=== PATIENT | male | born 1980 | race Caucasian/White ===

== ENCOUNTER 2020-06-23 12:22 | Inpatient (IN) | payer OTHER ==
[2020-06-23] MEDS ORDERED: chlordiazePOXIDE HCL 25 MG CAPSULE ONE (14:12)
[2020-06-23 14:17] VITALS: BMI 36.1
[2020-06-23] MEDS ORDERED: cloNIDine HCL 0.1 MG TABLET ONE (14:17)
[2020-06-23] MEDS ORDERED: BISMUTH SUBSALICYLATE 262 MG/15 ML BTL PO PRN (14:18)
[2020-06-23] MEDS ORDERED: ACETAMINOPHEN 325 MG TABLET (FP) PO PRN ×2 (14:18)
[2020-06-23] MEDS ORDERED: ONDANSETRON *ODT* 4 MG TABLET SL PRN (14:18)
[2020-06-23] MEDS ORDERED: MAGNESIUM CITRATE 300 ML BOTTLE PO PRN (14:18)
[2020-06-23] MEDS ORDERED: MENTHOL/PHENOL 1 EACH UD MM PRN (14:18)
[2020-06-23] MEDS ORDERED: MAGNESIUM HYDROX 2400MG/30ML ORAL SUSPENSION 30 ML CUP PO PRN (14:18)
[2020-06-23] MEDS ORDERED: NICOTINE POLACRILEX 2 MG GUM BUC PRN (14:18)
[2020-06-23] MEDS ORDERED: cloNIDine HCL 0.1 MG TABLET PO PRN (14:19)
[2020-06-23] MEDS: chlordiazePOXIDE HCL 25 MG CAPSULE PO PRN (14:26)
[2020-06-23] MEDS: PRENATAL VITAMINS W/ FOLIC ACID TABLET (FP) PO SCH (17:55)
[2020-06-23] MEDS: chlordiazePOXIDE HCL 25 MG CAPSULE PO SCH ×2 (17:55→22:18)
[2020-06-23] MEDS: hydrOXYzine PAMOATE 25 MG CAPSULE (FP) PO SCH ×2 (17:56→21:56)
[2020-06-23] MEDS: MAG HYDROX/AL HYDROX/SIMETH 30 ML UNIT-DOSE CUP PO PRN (18:06)
[2020-06-23 18:08] LABS: HIV INTERPRETATION NEGATIVE (NEGATIVE)
[2020-06-23] MEDS: MELATONIN 5 MG TABLETS PO SCH (21:56)
[2020-06-23] MEDS: THIAMINE HCL 100 MG TABLET (FP) PO SCH (21:56)
[2020-06-24] MEDS: chlordiazePOXIDE HCL 25 MG CAPSULE PO PRN (03:49)
[2020-06-24] MEDS: hydrOXYzine PAMOATE 25 MG CAPSULE (FP) PO SCH ×5 (05:28→22:07)
[2020-06-24] MEDS: chlordiazePOXIDE HCL 25 MG CAPSULE PO SCH (05:28)
[2020-06-24] MEDS ORDERED: NICOTINE 21 MG/24 HOURS TOPICAL PATCH TD SCH (10:00)
[2020-06-24] MEDS: PRENATAL VITAMINS W/ FOLIC ACID TABLET (FP) PO SCH (10:14)
[2020-06-24] MEDS: LORazepam 2 MG TABLET PO SCH ×3 (10:14→22:06)
[2020-06-24] MEDS: METHOCARBAMOL 500 MG TABLET PO PRN ×2 (10:16→17:43)
[2020-06-24] MEDS: IBUPROFEN 400 MG TABLET (FP) PO PRN ×2 (10:16→22:08)
[2020-06-24 10:33] LABS: HEMOGLOBIN 14.1 GM/dL (11.7-16.9); MCH 31.8 pg (25.7-33.7); MCHC 35.3 g/dl (32.0-35.9); MEAN CELL VOLUME 90.3 fl (80-96); MEAN PLT VOLUME 8.4 fl (7.5-11.1); PLATELET COUNT 336 K/MM3 (134-434); RBC 4.43 M/mm3 (4.00-5.60); RDW 13.5 % (11.9-15.9); WHITE BLOOD COUNT 6.5 K/mm3 (4.0-10.0)
[2020-06-24 11:07] LABS: POTASSIUM 3.9 mmol/L (3.5-5.1)
[2020-06-24 11:17] LABS: CALCIUM 9.2 mg/dL (8.5-10.1)
[2020-06-24 11:18] LABS: ALBUMIN 4.1 g/dl (3.4-5.0); BLOOD UREA NITROGEN 8.5 mg/dL (7-18)
[2020-06-24 11:21] LABS: CREATININE 0.9 mg/dL (0.55-1.3)
[2020-06-24 11:22] LABS: BILIRUBIN,TOTAL 0.5 mg/dL (0.2-1); TOT PROT 7.7 g/dl (6.4-8.2)
[2020-06-24] MEDS: LORazepam 1 MG TABLET PO PRN (14:20)
[2020-06-24] MEDS: busPIRone HCL 10 MG TABLET (FP) PO SCH ×2 (14:21→22:06)
[2020-06-24] MEDS: MAG HYDROX/AL HYDROX/SIMETH 30 ML UNIT-DOSE CUP PO PRN (15:51)
[2020-06-24] MEDS ORDERED: AMITRIPTYLINE HCL 25 MG TABLET PO SCH (22:00)
[2020-06-24] MEDS: THIAMINE HCL 100 MG TABLET (FP) PO SCH (22:06)
[2020-06-24] MEDS: MELATONIN 5 MG TABLETS PO SCH (22:07)
[2020-06-25] MEDS: LORazepam 1 MG TABLET PO PRN ×2 (01:26→07:59)
[2020-06-25] MEDS ORDERED: chlordiazePOXIDE HCL 25 MG CAPSULE PO SCH (05:00)
[2020-06-25] MEDS: busPIRone HCL 10 MG TABLET (FP) PO SCH (05:32)
[2020-06-25] MEDS: hydrOXYzine PAMOATE 25 MG CAPSULE (FP) PO SCH (05:32)
[2020-06-25] MEDS: LORazepam 2 MG TABLET PO SCH (05:32)
[2020-06-25] MEDS: IBUPROFEN 400 MG TABLET (FP) PO PRN (05:33)
[2020-06-25 07:26] VITALS: BP 132/84; PULSE 113; TEMP 97.5
[2020-06-25] MEDS ORDERED: PNEUMOCOCCAL 23 VACCINE 0.5 ML VIAL IM ONE (12:00)
[2020-06-25] MEDS ORDERED: PNEUMOC 13-VAL CONJ-DIP CRM/PF 0.5 ML DISP.SYRIN IM ONE (12:00)
[2020-06-25] MEDS ORDERED: FLU VACCINE (FLULAVAL) PF 60 MCG/0.5 ML SYRINGE 2020-2021 IM ONE (12:00)
[2020-06-26] MEDS ORDERED: chlordiazePOXIDE HCL 10 MG CAPSULE PO PRN
[2020-06-26] MEDS ORDERED: LORazepam 1 MG TABLET PO SCH (05:00)
[2020-06-26] MEDS ORDERED: chlordiazePOXIDE HCL 10 MG CAPSULE PO SCH (05:00)
[2020-06-27] MEDS ORDERED: LORazepam 0.5 MG TABLET PO PRN
[2020-06-27] MEDS ORDERED: chlordiazePOXIDE HCL 10 MG CAPSULE PO SCH (05:00)
[2020-06-27] MEDS ORDERED: LORazepam 0.5 MG TABLET PO SCH (05:00)
[2020-06-28] MEDS ORDERED: chlordiazePOXIDE HCL 10 MG CAPSULE PO ONE (05:00)
[2020-06-28] MEDS ORDERED: LORazepam 0.5 MG TABLET PO ONE (05:00)
== END 2020-06-25 09:14 | disposition left against medical advice (07) | DRG 770 ==
LOC: YASAS 12:22 → Y6N 14:52
PROVIDERS: ADMIT Allergy & Immunology; ATTEND Allergy & Immunology
PROC: HZ2ZZZZ Detoxification Services for Substance Abuse Treatment (ICD-10-PCS; principal; 2020-06-23)
DX: F10.230 Alcohol dependence with withdrawal, uncomplicated (principal); F11.20 Opioid dependence, uncomplicated; F17.210 Nicotine dependence, cigarettes, uncomplicated; F19.282 Other psychoactive substance dependence with psychoactive substance-induced sleep disorder; F19.24 Other psychoactive substance dependence with psychoactive substance-induced mood disorder; F32.9 Major depressive disorder, single episode, unspecified; F43.10 Post-traumatic stress disorder, unspecified; M54.5 Low back pain; G89.29 Other chronic pain; Z91.5 Personal history of self-harm; Z98.890 Other specified postprocedural states; Z56.0 Unemployment, unspecified; Z59.0 Homelessness
CPT/HCPCS: 36415; 80053; 85027; 86780; 87389; 93005; 93010; C9803; J0735; Q0162; U0003

== ENCOUNTER 2021-05-18 09:42 | Emergency (ER) | payer OTHER ==
[2021-05-18] MEDS ORDERED: HALOPERIDOL LACTATE 5 MG/ML ONE (10:11)
[2021-05-18] MEDS ORDERED: HALOPERIDOL LACTATE 5 MG/ML IM ONE (10:12)
[2021-05-18 10:21] VITALS: BP 124/78; PULSE 105; TEMP 98; BMI 36.1
[2021-05-18] MEDS ORDERED: MIDAZOLAM HCL 2 MG/2 ML SINGLE DOSE VIAL IVPUSH ONE (10:31)
[2021-05-18] MEDS ORDERED: MIDAZOLAM HCL 2 MG/2 ML SINGLE DOSE VIAL ONE (10:31)
[2021-05-18 11:04] LABS: BASO % 0.9 % (0-2.0); EOS % 0.5 % (0-4.5); HEMOGLOBIN 14.9 GM/dL (11.7-16.9); LYMPH % 25.7 % (8-40); MCH 31.6 pg (25.7-33.7); MCHC 34.6 g/dl (32.0-35.9); MEAN CELL VOLUME 91.5 fl (80-96); NEUT % 63.9 % (42.8-82.8); PLATELET COUNT 314 10^3/uL (134-434); RDW 12.5 % (11.9-15.9); WHITE BLOOD COUNT 8.5 K/mm3 (4.0-10.0)
[2021-05-18 12:01] LABS: ALBUMIN 4.1 g/dl (3.4-5.0); BILIRUBIN,TOTAL 0.5 mg/dl (0.2-1); CALCIUM 9.1 mg/dl (8.5-10); CREATININE 0.8 mg/dl (0.55-1.3); TOT PROT 7.3 g/dl (6.4-8.2)
[2021-05-18 12:14] LABS: COCAINE, UR NEGATIVE (NEGATIVE); METHADONE, UR NEGATIVE (NEGATIVE); OPIATES, URI NEGATIVE (NEGATIVE); PHENCYCLIDINE,URINE NEGATIVE (NEGATIVE); URINE BARBITURATES NEGATIVE (NEGATIVE)
[2021-05-18 12:15] LABS: URINE AMPHETAMINES NEGATIVE (NEGATIVE); URINE BENZODIAZEPINES POSITIVE (NEGATIVE)
[2021-05-18] MEDS ORDERED: LORazepam 2 MG TABLET PO ONE (14:12)
[2021-05-18] MEDS ORDERED: LORazepam 0.5 MG TABLET ONE (14:13)
[2021-05-18] MEDS ORDERED: chlordiazePOXIDE HCL 25 MG CAPSULE PO ONE (16:14)
[2021-05-18] MEDS ORDERED: chlordiazePOXIDE HCL 25 MG CAPSULE ONE (16:26)
== END 2021-05-18 17:16 | disposition home or self-care (01) ==
LOC: FER 09:42
PROC: 3E023NZ Introduction of Analgesics, Hypnotics, Sedatives into Muscle, Percutaneous Approach (ICD-10-PCS; principal; 2021-05-18)
PROC: 3E033NZ Introduction of Analgesics, Hypnotics, Sedatives into Peripheral Vein, Percutaneous Approach (ICD-10-PCS; 2021-05-18)
DX: F10.239 Alcohol dependence with withdrawal, unspecified (principal); F19.24 Other psychoactive substance dependence with psychoactive substance-induced mood disorder
CPT/HCPCS: 36415; 80053; 80307; 85025; 93005; 96372; 96374; 99284-25; C9803; U0003; U0005

== ENCOUNTER 2021-08-14 15:50 | Inpatient (IN) | payer OTHER ==
[2021-08-14 16:47] VITALS: BMI 39.1
[2021-08-14] MEDS ORDERED: MELATONIN 5 MG TABLETS PO PRN (17:05)
[2021-08-14] MEDS ORDERED: ACETAMINOPHEN 325 MG TABLET (FP) PO PRN ×2 (17:05)
[2021-08-14] MEDS ORDERED: BENZOCAINE/MENTHOL (CHLORASEPTIC ) LOZENGE MM PRN (17:05)
[2021-08-14] MEDS ORDERED: IBUPROFEN 400 MG TABLET (FP) PO PRN (17:05)
[2021-08-14] MEDS ORDERED: MAGNESIUM CITRATE 300 ML BOTTLE PO PRN (17:05)
[2021-08-14] MEDS ORDERED: P-EPHED 60MG/TRIPROLIDI 2.5MG TABLET PO PRN (17:05)
[2021-08-14] MEDS ORDERED: LOPERAMIDE HCL 2 MG CAPSULE PO PRN (17:05)
[2021-08-14] MEDS ORDERED: DICYCLOMINE HCL 10 MG CAPSULE PO PRN (17:05)
[2021-08-14] MEDS ORDERED: MAGNESIUM HYDROX 2400MG/30ML ORAL SUSPENSION 30 ML CUP PO PRN (17:05)
[2021-08-14] MEDS ORDERED: BISMUTH SUBSALICYLATE 524 MG/30 ML PO PRN (17:05)
[2021-08-14] MEDS ORDERED: METHOCARBAMOL 500 MG TABLET PO PRN (17:05)
[2021-08-14] MEDS ORDERED: MAG HYDROX/AL HYDROX/SIMETH 30 ML UNIT-DOSE CUP PO PRN (17:05)
[2021-08-14] MEDS ORDERED: cloNIDine HCL 0.1 MG TABLET PO PRN (17:08)
[2021-08-14] MEDS ORDERED: chlordiazePOXIDE HCL 25 MG CAPSULE PO PRN (17:08)
[2021-08-14] MEDS ORDERED: methaDONE HCL 10 MG TABLET (FOR DETOX USE ONLY) PO ONE (17:08)
[2021-08-14] MEDS ORDERED: METOPROLOL TARTRATE 25 MG TABLET (FP) PO ONE (17:09)
[2021-08-14] MEDS ORDERED: chlordiazePOXIDE HCL 25 MG CAPSULE ONE (18:09)
[2021-08-14] MEDS ORDERED: methaDONE HCL 10 MG TABLET (FOR DETOX USE ONLY) ONE (18:10)
[2021-08-14] MEDS: chlordiazePOXIDE HCL 25 MG CAPSULE PO SCH ×2 (18:11→22:09)
[2021-08-14] MEDS: THIAMINE HCL 100 MG TABLET (FP) PO SCH (22:09)
[2021-08-14] MEDS: hydrOXYzine PAMOATE 25 MG CAPSULE (FP) PO PRN (22:09)
[2021-08-15] MEDS: ONDANSETRON *ODT* 4 MG TABLET SL PRN ×2 (02:37→04:36)
[2021-08-15] MEDS ORDERED: TRIMETHOBENZAMIDE HCL 200MG/2ML INJ IM ONE (05:00)
[2021-08-15] MEDS: chlordiazePOXIDE HCL 25 MG CAPSULE PO SCH ×2 (05:37→12:02)
[2021-08-15] MEDS: hydrOXYzine PAMOATE 25 MG CAPSULE (FP) PO PRN ×2 (05:38→22:06)
[2021-08-15] MEDS ORDERED: methaDONE HCL 10 MG TABLET (FOR DETOX USE ONLY) PO ONE (10:00)
[2021-08-15] MEDS ORDERED: methaDONE HCL 10 MG TABLET (FOR DETOX USE ONLY) ONE (10:06)
[2021-08-15] MEDS: PRENATAL VITAMINS W/ FOLIC ACID TABLET (FP) PO SCH (10:08)
[2021-08-15] MEDS: QUEtiapine FUMARATE 100 MG TABLET (FP) PO SCH ×2 (10:09→22:06)
[2021-08-15] MEDS ORDERED: LORazepam 1 MG TABLET PO PRN (12:19)
[2021-08-15] MEDS ORDERED: TRIMETHOBENZAMIDE HCL 200MG/2ML INJ IM PRN (12:21)
[2021-08-15] MEDS: LORazepam 2 MG TABLET PO SCH ×3 (12:41→22:05)
[2021-08-15] MEDS: CLOTRIMAZOLE 1% CREAM TP SCH ×2 (12:43→22:07)
[2021-08-15] MEDS: THIAMINE HCL 100 MG TABLET (FP) PO SCH (22:05)
[2021-08-15] MEDS: AMITRIPTYLINE HCL 75 MG TABLET PO SCH (22:06)
[2021-08-16 00:06] LABS: SARS-CoV-2 NAA Not Detected (Not Detected)
[2021-08-16] MEDS ORDERED: chlordiazePOXIDE HCL 25 MG CAPSULE PO SCH (05:00)
[2021-08-16] MEDS: LORazepam 2 MG TABLET PO SCH ×4 (05:05→22:15)
[2021-08-16] MEDS: ONDANSETRON *ODT* 4 MG TABLET SL PRN (05:07)
[2021-08-16] MEDS ORDERED: methaDONE HCL 10 MG TABLET (FOR DETOX USE ONLY) PO ONE (10:00)
[2021-08-16] MEDS: PRENATAL VITAMINS W/ FOLIC ACID TABLET (FP) PO SCH (10:09)
[2021-08-16] MEDS: CLOTRIMAZOLE 1% CREAM TP SCH ×2 (10:09→22:15)
[2021-08-16] MEDS: QUEtiapine FUMARATE 100 MG TABLET (FP) PO SCH ×2 (10:09→22:15)
[2021-08-16] MEDS: NICOTINE 10 MG CARTRIDGE (INHALER) IH PRN ×3 (10:13→22:16)
[2021-08-16 12:32] LABS: HEMATOCRIT 37.3 % (35.4-49); HEMOGLOBIN 13.1 GM/dL (11.7-16.9); MCH 32.5 pg (25.7-33.7); MCHC 35.1 g/dl (32.0-35.9); MEAN CELL VOLUME 92.7 fl (80-96); MEAN PLT VOLUME 6.9 fl (7.5-11.1); PLATELET COUNT 230 10^3/uL (134-434); RBC 4.02 M/mm3 (4.00-5.60); RDW 13.6 % (11.9-15.9); WHITE BLOOD COUNT 5.7 K/mm3 (4.0-10.0)
[2021-08-16 13:03] LABS: CALCIUM 8.5 mg/dL (8.5-10.1)
[2021-08-16 13:07] LABS: ALBUMIN 3.4 g/dl (3.4-5.0); BLOOD UREA NITROGEN 17.5 mg/dL (7-18); CREATININE 0.8 mg/dL (0.55-1.3)
[2021-08-16 13:08] LABS: BILIRUBIN,TOTAL 0.5 mg/dL (0.2-1); TOT PROT 6.3 g/dl (6.4-8.2)
[2021-08-16] MEDS: hydrOXYzine PAMOATE 25 MG CAPSULE (FP) PO PRN (17:45)
[2021-08-16] MEDS: AMITRIPTYLINE HCL 75 MG TABLET PO SCH (22:15)
[2021-08-16] MEDS: THIAMINE HCL 100 MG TABLET (FP) PO SCH (22:16)
[2021-08-17] MEDS ORDERED: chlordiazePOXIDE HCL 10 MG CAPSULE PO PRN
[2021-08-17] MEDS ORDERED: chlordiazePOXIDE HCL 10 MG CAPSULE PO SCH (05:00)
[2021-08-17] MEDS: LORazepam 1 MG TABLET PO SCH ×4 (05:07→22:13)
[2021-08-17 08:34] LABS: SARS-CoV-2 NAA Not Detected
[2021-08-17] MEDS ORDERED: methaDONE HCL 10 MG TABLET (FOR DETOX USE ONLY) PO ONE (10:00)
[2021-08-17] MEDS: CLOTRIMAZOLE 1% CREAM TP SCH ×2 (10:17→22:13)
[2021-08-17] MEDS: QUEtiapine FUMARATE 100 MG TABLET (FP) PO SCH ×2 (10:17→22:13)
[2021-08-17] MEDS: PRENATAL VITAMINS W/ FOLIC ACID TABLET (FP) PO SCH (10:17)
[2021-08-17] MEDS: NICOTINE 10 MG CARTRIDGE (INHALER) IH PRN (14:55)
[2021-08-17] MEDS: THIAMINE HCL 100 MG TABLET (FP) PO SCH (22:12)
[2021-08-17] MEDS: AMITRIPTYLINE HCL 75 MG TABLET PO SCH (22:13)
[2021-08-18] MEDS ORDERED: LORazepam 0.5 MG TABLET PO PRN
[2021-08-18] MEDS ORDERED: chlordiazePOXIDE HCL 10 MG CAPSULE PO SCH (05:00)
[2021-08-18] MEDS: LORazepam 0.5 MG TABLET PO SCH ×4 (05:31→22:11)
[2021-08-18] MEDS: PRENATAL VITAMINS W/ FOLIC ACID TABLET (FP) PO SCH (10:03)
[2021-08-18] MEDS: QUEtiapine FUMARATE 100 MG TABLET (FP) PO SCH ×2 (10:03→22:12)
[2021-08-18] MEDS: CLOTRIMAZOLE 1% CREAM TP SCH ×2 (10:04→22:34)
[2021-08-18] MEDS: hydrOXYzine PAMOATE 25 MG CAPSULE (FP) PO PRN (13:11)
[2021-08-18] MEDS: THIAMINE HCL 100 MG TABLET (FP) PO SCH (22:11)
[2021-08-18] MEDS: AMITRIPTYLINE HCL 75 MG TABLET PO SCH (22:12)
[2021-08-19] MEDS ORDERED: LORazepam 0.5 MG TABLET PO ONE (05:00)
[2021-08-19] MEDS ORDERED: chlordiazePOXIDE HCL 10 MG CAPSULE PO ONE (05:00)
[2021-08-19 09:14] VITALS: BP 122/80; PULSE 114; TEMP 98.1
[2021-08-19] MEDS: QUEtiapine FUMARATE 100 MG TABLET (FP) PO SCH (10:09)
[2021-08-19] MEDS: PRENATAL VITAMINS W/ FOLIC ACID TABLET (FP) PO SCH (10:09)
[2021-08-19] MEDS: CLOTRIMAZOLE 1% CREAM TP SCH (10:10)
[2021-08-19] MEDS: NICOTINE 10 MG CARTRIDGE (INHALER) IH PRN (10:10)
== END 2021-08-19 11:12 | disposition other institution (70) | DRG 773 ==
LOC: YASAS 15:50 → Y6N 17:05
PROVIDERS: ADMIT Allergy & Immunology; ATTEND Allergy & Immunology
PROC: HZ2ZZZZ Detoxification Services for Substance Abuse Treatment (ICD-10-PCS; principal; 2021-08-14)
DX: F11.23 Opioid dependence with withdrawal (principal); F10.230 Alcohol dependence with withdrawal, uncomplicated; F14.10 Cocaine abuse, uncomplicated; F17.210 Nicotine dependence, cigarettes, uncomplicated; F19.280 Other psychoactive substance dependence with psychoactive substance-induced anxiety disorder; F19.282 Other psychoactive substance dependence with psychoactive substance-induced sleep disorder; F19.24 Other psychoactive substance dependence with psychoactive substance-induced mood disorder; F41.9 Anxiety disorder, unspecified; F32.A Depression, unspecified; F43.10 Post-traumatic stress disorder, unspecified; I10 Essential (primary) hypertension; H91.92 Unspecified hearing loss, left ear; M54.50 Low back pain, unspecified; G89.29 Other chronic pain
CPT/HCPCS: 36415; 80053; 84443; 85027; 86780; C9803-CS; Q0162; U0003; U0005

== ENCOUNTER 2021-08-19 11:22 | Inpatient (IN) | payer OTHER ==
[2021-08-19] MEDS ORDERED: BENZOCAINE/MENTHOL (CHLORASEPTIC ) LOZENGE MM PRN (14:06)
[2021-08-19] MEDS ORDERED: MAGNESIUM HYDROX 2400MG/30ML ORAL SUSPENSION 30 ML CUP PO PRN (14:06)
[2021-08-19] MEDS ORDERED: IBUPROFEN 400 MG TABLET (FP) PO PRN (14:06)
[2021-08-19] MEDS ORDERED: MAG HYDROX/AL HYDROX/SIMETH 30 ML UNIT-DOSE CUP PO PRN (14:06)
[2021-08-19] MEDS ORDERED: guaiFENesin 200 MG/10 ML 10 ML UNIT-DOSE CUPS PO PRN (14:06)
[2021-08-19] MEDS ORDERED: ACETAMINOPHEN 325 MG TABLET (FP) PO PRN (14:06)
[2021-08-19] MEDS ORDERED: MAGNESIUM CITRATE 300 ML BOTTLE PO PRN (14:06)
[2021-08-19] MEDS ORDERED: LOPERAMIDE HCL 2 MG CAPSULE PO PRN (14:06)
[2021-08-19] MEDS ORDERED: P-EPHED 60MG/TRIPROLIDI 2.5MG TABLET PO PRN (14:06)
[2021-08-19] MEDS ORDERED: hydrOXYzine PAMOATE 25 MG CAPSULE (FP) PO SCH (18:00)
[2021-08-19] MEDS: NICOTINE 10 MG CARTRIDGE (INHALER) IH PRN (19:54)
[2021-08-19] MEDS: THIAMINE HCL 100 MG TABLET (FP) PO SCH (21:11)
[2021-08-19] MEDS: MELATONIN 5 MG TABLETS PO SCH (21:11)
[2021-08-19] MEDS: CLOTRIMAZOLE 1% CREAM TP SCH (21:12)
[2021-08-19] MEDS: AMITRIPTYLINE HCL 25 MG TABLET PO SCH (21:12)
[2021-08-19] MEDS: QUEtiapine FUMARATE 100 MG TABLET (FP) PO SCH (21:13)
[2021-08-20] MEDS: hydrOXYzine PAMOATE 25 MG CAPSULE (FP) PO PRN (06:15)
[2021-08-20] MEDS: CLOTRIMAZOLE 1% CREAM TP SCH ×2 (09:48→21:15)
[2021-08-20] MEDS: NICOTINE 7 MG/24 HOURS TOPICAL PATCH TD SCH (09:48)
[2021-08-20] MEDS: NICOTINE 10 MG CARTRIDGE (INHALER) IH PRN ×2 (09:49→15:29)
[2021-08-20] MEDS: QUEtiapine FUMARATE 100 MG TABLET (FP) PO SCH ×2 (09:49→21:15)
[2021-08-20] MEDS: PRENATAL VITAMINS W/ FOLIC ACID TABLET (FP) PO SCH (09:49)
[2021-08-20] MEDS: THIAMINE HCL 100 MG TABLET (FP) PO SCH (21:12)
[2021-08-20] MEDS: AMITRIPTYLINE HCL 25 MG TABLET PO SCH (21:12)
[2021-08-20] MEDS: MELATONIN 5 MG TABLETS PO SCH (21:12)
[2021-08-21] MEDS: CLOTRIMAZOLE 1% CREAM TP SCH ×2 (09:50→21:50)
[2021-08-21] MEDS: NICOTINE 7 MG/24 HOURS TOPICAL PATCH TD SCH (09:51)
[2021-08-21] MEDS: hydrOXYzine PAMOATE 25 MG CAPSULE (FP) PO PRN (09:51)
[2021-08-21] MEDS: QUEtiapine FUMARATE 100 MG TABLET (FP) PO SCH ×2 (09:51→21:48)
[2021-08-21] MEDS: PRENATAL VITAMINS W/ FOLIC ACID TABLET (FP) PO SCH (09:51)
[2021-08-21] MEDS: NICOTINE 10 MG CARTRIDGE (INHALER) IH PRN ×2 (09:52→15:30)
[2021-08-21] MEDS: MELATONIN 5 MG TABLETS PO SCH (21:46)
[2021-08-21] MEDS: THIAMINE HCL 100 MG TABLET (FP) PO SCH (21:47)
[2021-08-21] MEDS: AMITRIPTYLINE HCL 25 MG TABLET PO SCH (21:49)
[2021-08-22] MEDS: hydrOXYzine PAMOATE 25 MG CAPSULE (FP) PO PRN (06:25)
[2021-08-22] MEDS: NICOTINE 7 MG/24 HOURS TOPICAL PATCH TD SCH (09:44)
[2021-08-22] MEDS: NICOTINE 10 MG CARTRIDGE (INHALER) IH PRN (09:44)
[2021-08-22] MEDS: PRENATAL VITAMINS W/ FOLIC ACID TABLET (FP) PO SCH (09:45)
[2021-08-22] MEDS: CLOTRIMAZOLE 1% CREAM TP SCH ×2 (09:46→21:29)
[2021-08-22] MEDS: QUEtiapine FUMARATE 100 MG TABLET (FP) PO SCH ×2 (09:46→21:28)
[2021-08-22] MEDS: THIAMINE HCL 100 MG TABLET (FP) PO SCH (21:28)
[2021-08-22] MEDS: MELATONIN 5 MG TABLETS PO SCH (21:28)
[2021-08-22] MEDS: AMITRIPTYLINE HCL 25 MG TABLET PO SCH (21:29)
[2021-08-23] MEDS: NICOTINE 10 MG CARTRIDGE (INHALER) IH PRN ×3 (08:40→21:32)
[2021-08-23] MEDS: NICOTINE 7 MG/24 HOURS TOPICAL PATCH TD SCH (09:55)
[2021-08-23] MEDS: QUEtiapine FUMARATE 100 MG TABLET (FP) PO SCH ×2 (09:56→21:33)
[2021-08-23] MEDS: PRENATAL VITAMINS W/ FOLIC ACID TABLET (FP) PO SCH (09:56)
[2021-08-23] MEDS: CLOTRIMAZOLE 1% CREAM TP SCH ×2 (09:57→21:34)
[2021-08-23] MEDS: MELATONIN 5 MG TABLETS PO SCH (21:32)
[2021-08-23] MEDS: THIAMINE HCL 100 MG TABLET (FP) PO SCH (21:32)
[2021-08-23] MEDS: AMITRIPTYLINE HCL 25 MG TABLET PO SCH (21:33)
[2021-08-23] MEDS ORDERED: INSULIN (NOVOLOG) ASPART 100 UNITS/ML 10ML VIAL ONE (21:43)
[2021-08-23] MEDS ORDERED: INSULIN (LEVEMIR) 100 UNITS/ML UNITS SQ ONE (21:43)
[2021-08-24 00:09] LABS: SARS-CoV-2 NAA Not Detected (Not Detected)
[2021-08-24] MEDS: hydrOXYzine PAMOATE 25 MG CAPSULE (FP) PO PRN (06:35)
[2021-08-24] MEDS: NICOTINE 10 MG CARTRIDGE (INHALER) IH PRN (07:52)
[2021-08-24] MEDS: PRENATAL VITAMINS W/ FOLIC ACID TABLET (FP) PO SCH (09:59)
[2021-08-24] MEDS: CLOTRIMAZOLE 1% CREAM TP SCH ×2 (09:59→21:29)
[2021-08-24] MEDS: QUEtiapine FUMARATE 100 MG TABLET (FP) PO SCH ×2 (10:00→21:29)
[2021-08-24] MEDS: NICOTINE 7 MG/24 HOURS TOPICAL PATCH TD SCH (10:01)
[2021-08-24] MEDS: THIAMINE HCL 100 MG TABLET (FP) PO SCH (21:28)
[2021-08-24] MEDS: MELATONIN 5 MG TABLETS PO SCH (21:28)
[2021-08-24] MEDS: AMITRIPTYLINE HCL 25 MG TABLET PO SCH (21:29)
[2021-08-25] MEDS: NICOTINE 7 MG/24 HOURS TOPICAL PATCH TD SCH (09:49)
[2021-08-25] MEDS: PRENATAL VITAMINS W/ FOLIC ACID TABLET (FP) PO SCH (09:49)
[2021-08-25] MEDS: QUEtiapine FUMARATE 100 MG TABLET (FP) PO SCH ×2 (09:49→21:16)
[2021-08-25] MEDS: CLOTRIMAZOLE 1% CREAM TP SCH ×2 (09:50→21:17)
[2021-08-25] MEDS: NICOTINE 10 MG CARTRIDGE (INHALER) IH PRN (12:59)
[2021-08-25] MEDS: THIAMINE HCL 100 MG TABLET (FP) PO SCH (21:16)
[2021-08-25] MEDS: MELATONIN 5 MG TABLETS PO SCH (21:16)
[2021-08-25] MEDS: AMITRIPTYLINE HCL 25 MG TABLET PO SCH (21:16)
[2021-08-26] MEDS: CLOTRIMAZOLE 1% CREAM TP SCH ×2 (09:31→21:21)
[2021-08-26] MEDS: PRENATAL VITAMINS W/ FOLIC ACID TABLET (FP) PO SCH (09:31)
[2021-08-26] MEDS: NICOTINE 7 MG/24 HOURS TOPICAL PATCH TD SCH (09:31)
[2021-08-26] MEDS: QUEtiapine FUMARATE 100 MG TABLET (FP) PO SCH ×2 (09:32→21:20)
[2021-08-26] MEDS: NICOTINE 10 MG CARTRIDGE (INHALER) IH PRN (14:40)
[2021-08-26] MEDS: MELATONIN 5 MG TABLETS PO SCH (21:19)
[2021-08-26] MEDS: AMITRIPTYLINE HCL 25 MG TABLET PO SCH (21:19)
[2021-08-26] MEDS: THIAMINE HCL 100 MG TABLET (FP) PO SCH (21:19)
[2021-08-27] MEDS: NICOTINE 7 MG/24 HOURS TOPICAL PATCH TD SCH (07:17)
[2021-08-27] MEDS: PRENATAL VITAMINS W/ FOLIC ACID TABLET (FP) PO SCH (10:22)
[2021-08-27] MEDS: QUEtiapine FUMARATE 100 MG TABLET (FP) PO SCH ×2 (10:22→21:35)
[2021-08-27] MEDS: CLOTRIMAZOLE 1% CREAM TP SCH ×2 (10:23→21:35)
[2021-08-27] MEDS: NICOTINE 10 MG CARTRIDGE (INHALER) IH PRN ×3 (10:23→21:35)
[2021-08-27] MEDS: AMITRIPTYLINE HCL 25 MG TABLET PO SCH (21:34)
[2021-08-27] MEDS: MELATONIN 5 MG TABLETS PO SCH (21:35)
[2021-08-27] MEDS: THIAMINE HCL 100 MG TABLET (FP) PO SCH (21:35)
[2021-08-28] MEDS: NICOTINE 7 MG/24 HOURS TOPICAL PATCH TD SCH (06:50)
[2021-08-28] MEDS: CLOTRIMAZOLE 1% CREAM TP SCH ×2 (09:10→21:15)
[2021-08-28] MEDS: PRENATAL VITAMINS W/ FOLIC ACID TABLET (FP) PO SCH (09:10)
[2021-08-28] MEDS: QUEtiapine FUMARATE 100 MG TABLET (FP) PO SCH ×2 (09:10→21:07)
[2021-08-28] MEDS: NICOTINE 10 MG CARTRIDGE (INHALER) IH PRN ×2 (09:10→21:07)
[2021-08-28] MEDS: THIAMINE HCL 100 MG TABLET (FP) PO SCH (21:06)
[2021-08-28] MEDS: MELATONIN 5 MG TABLETS PO SCH (21:06)
[2021-08-28] MEDS: AMITRIPTYLINE HCL 25 MG TABLET PO SCH (21:07)
[2021-08-29] MEDS: NICOTINE 7 MG/24 HOURS TOPICAL PATCH TD SCH (06:10)
[2021-08-29] MEDS: hydrOXYzine PAMOATE 25 MG CAPSULE (FP) PO PRN (06:11)
[2021-08-29] MEDS: NICOTINE 10 MG CARTRIDGE (INHALER) IH PRN ×3 (07:20→21:09)
[2021-08-29] MEDS: PRENATAL VITAMINS W/ FOLIC ACID TABLET (FP) PO SCH (09:20)
[2021-08-29] MEDS: QUEtiapine FUMARATE 100 MG TABLET (FP) PO SCH ×2 (09:20→21:09)
[2021-08-29] MEDS: CLOTRIMAZOLE 1% CREAM TP SCH ×2 (09:20→21:09)
[2021-08-29] MEDS: MELATONIN 5 MG TABLETS PO SCH (21:08)
[2021-08-29] MEDS: THIAMINE HCL 100 MG TABLET (FP) PO SCH (21:08)
[2021-08-29] MEDS: AMITRIPTYLINE HCL 25 MG TABLET PO SCH (21:09)
[2021-08-30] MEDS: NICOTINE 7 MG/24 HOURS TOPICAL PATCH TD SCH (06:54)
[2021-08-30] MEDS: NICOTINE 10 MG CARTRIDGE (INHALER) IH PRN ×3 (10:08→21:05)
[2021-08-30] MEDS: CLOTRIMAZOLE 1% CREAM TP SCH ×2 (10:09→21:06)
[2021-08-30] MEDS: QUEtiapine FUMARATE 100 MG TABLET (FP) PO SCH ×2 (10:09→21:04)
[2021-08-30] MEDS: PRENATAL VITAMINS W/ FOLIC ACID TABLET (FP) PO SCH (10:09)
[2021-08-30] MEDS: AMITRIPTYLINE HCL 25 MG TABLET PO SCH (21:04)
[2021-08-30] MEDS: THIAMINE HCL 100 MG TABLET (FP) PO SCH (21:04)
[2021-08-30] MEDS: MELATONIN 5 MG TABLETS PO SCH (21:04)
[2021-08-31] MEDS: NICOTINE 7 MG/24 HOURS TOPICAL PATCH TD SCH (06:16)
[2021-08-31] MEDS: hydrOXYzine PAMOATE 25 MG CAPSULE (FP) PO PRN (06:17)
[2021-08-31] MEDS: NICOTINE 10 MG CARTRIDGE (INHALER) IH PRN ×2 (07:31→15:58)
[2021-08-31] MEDS: CLOTRIMAZOLE 1% CREAM TP SCH ×2 (09:40→21:03)
[2021-08-31] MEDS: PRENATAL VITAMINS W/ FOLIC ACID TABLET (FP) PO SCH (09:40)
[2021-08-31] MEDS: QUEtiapine FUMARATE 100 MG TABLET (FP) PO SCH ×2 (09:40→21:03)
[2021-08-31] MEDS: AMITRIPTYLINE HCL 25 MG TABLET PO SCH (21:02)
[2021-08-31] MEDS: MELATONIN 5 MG TABLETS PO SCH (21:03)
[2021-08-31] MEDS: THIAMINE HCL 100 MG TABLET (FP) PO SCH (21:03)
[2021-09-01] MEDS: hydrOXYzine PAMOATE 25 MG CAPSULE (FP) PO PRN (06:21)
[2021-09-01] MEDS: NICOTINE 7 MG/24 HOURS TOPICAL PATCH TD SCH (06:21)
[2021-09-01] MEDS: NICOTINE 10 MG CARTRIDGE (INHALER) IH PRN ×2 (06:22→14:35)
[2021-09-01 06:26] VITALS: TEMP 97.1
[2021-09-01] MEDS: CLOTRIMAZOLE 1% CREAM TP SCH ×2 (09:35→21:06)
[2021-09-01] MEDS: QUEtiapine FUMARATE 100 MG TABLET (FP) PO SCH ×2 (09:36→21:06)
[2021-09-01] MEDS: PRENATAL VITAMINS W/ FOLIC ACID TABLET (FP) PO SCH (09:36)
[2021-09-01] MEDS: THIAMINE HCL 100 MG TABLET (FP) PO SCH (21:05)
[2021-09-01] MEDS: MELATONIN 5 MG TABLETS PO SCH (21:05)
[2021-09-01] MEDS: AMITRIPTYLINE HCL 25 MG TABLET PO SCH (21:06)
[2021-09-02 06:26] VITALS: BP 122/89; PULSE 90
[2021-09-02] MEDS: NICOTINE 7 MG/24 HOURS TOPICAL PATCH TD SCH (07:34)
[2021-09-02] MEDS: CLOTRIMAZOLE 1% CREAM TP SCH (09:32)
[2021-09-02] MEDS: QUEtiapine FUMARATE 100 MG TABLET (FP) PO SCH (09:33)
[2021-09-02] MEDS: PRENATAL VITAMINS W/ FOLIC ACID TABLET (FP) PO SCH (09:33)
== END 2021-09-02 09:55 | disposition home or self-care (01) | DRG 772 ==
LOC: YASAS 11:22 → Y3E 11:23
PROVIDERS: ADMIT Allergy & Immunology; ATTEND Allergy & Immunology
PROC: HZ42ZZZ Group Counseling for Substance Abuse Treatment, Cognitive-Behavioral (ICD-10-PCS; principal; 2021-08-19)
DX: F11.20 Opioid dependence, uncomplicated (principal); F10.20 Alcohol dependence, uncomplicated; F14.10 Cocaine abuse, uncomplicated; F17.210 Nicotine dependence, cigarettes, uncomplicated; F41.9 Anxiety disorder, unspecified; F32.A Depression, unspecified; I10 Essential (primary) hypertension
CPT/HCPCS: C9803-CS; U0003; U0005